=== PATIENT | male | born 1965 | race Caucasian/White ===

== ENCOUNTER 2018-02-09 21:25 | Emergency (ER) | payer OTHER ==
[2018-02-09 21:29] VITALS: BP 131/74
[2018-02-09] MEDS ORDERED: FLUORESCEIN SODIUM 1 MG STRIP OP ONE ×2 (21:39→21:45)
[2018-02-09] MEDS ORDERED: PROPARACAINE 0.5% 15 ML OPHT DROP ONE (21:39)
[2018-02-09] MEDS ORDERED: PROPARACAINE 0.5% 15 ML OPHT DROP OP ONE (21:45)
--- NOTE | 2018-02-09 21:58 | EDPHY ---
H & P Time Seen by Provider: 02/09/18 21:58 HPI/ROS: CHIEF COMPLAINT: Left eye pain HISTORY OF PRESENT ILLNESS: Patient is 53-year-old male here complaining of left eye pain since this afternoon. 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 The pain as mostly resolved but still has a sense that there is something in his eye. Denies any vision changes. Takes no prescribed medications. There is no drug or alcohol use involved. Denies other injuries. REVIEW OF SYSTEMS: Constitutional: No fever, no chills. Eyes: No discharge. ENT: No sore throat. Cardiovascular: No chest pain, no palpitations. Respiratory: No cough, no shortness of breath. Gastrointestinal: No abdominal pain, no vomiting. Genitourinary: No hematuria. Musculoskeletal: No back pain. Skin: No rashes. Neurological: No headache. Smoking Status: Never smoked Physical Exam: General Appearance: Alert and no distress. Eyes: Pupils equal and round no injection. No foreign body or hyphema seen on funduscopic exam. Pupils PERRLA. Slit-lamp exam reveals corneal abrasion at approximately 11 o'clock without hyphema or foreign body. Respiratory: Chest is nontender, lungs are clear to auscultation. Cardiac: regular rate and rhythm. Gastrointestinal: Abdomen is soft and nontender, no masses, bowel sounds normal. Musculoskeletal: Neck is supple and nontender. Extremities have full range of motion and are nontender. Skin: No rashes or lesions. Constitutional: Initial Vital Signs Temperature (C) 36.8 C 02/09/18 21:27 Heart Rate 52 L 02/09/18 21:27 Respiratory Rate 18 02/09/18 21:27 Blood Pressure 131/74 H 02/09/18 21:27 O2 Sat (%) 96 02/09/18 21:27 O2 Delivery Mode Room Air Allergies/Adverse Reactions: No Known Allergies Allergy (Unverified 02/09/18 21:27) Home Medications: Medication Instructions Recorded Polymyxin B Sulfate/Tmp [Polytrim 1 drops EACHEYE TID 7 Days #1 02/09/18 Opht Drops (*)] bottle Medical Decision Making ED Course/Re-evaluation: Patient here with left eye pain after he is something his left eye while at work underneath a car. Exam reveals no subconjunctival hemorrhage, hyphema or foreign body. His vision is intact. There is is small corneal abrasion is likely the source of his pain. Is started on topical antibiotics and will follow up with Ophthalmology if pain is not improving. - Data Points Medications Given: Discontinued Medications Fluorescein Sodium (Bioglo) 1 mg OP EDNOW ONE Stop: 02/09/18 21:46 Last Admin: 02/09/18 21:45 Dose: 1 mg Polymyxin/Trimethoprim Sulfate (Polytrim Opht Drops) 1 drops LEFTEYE Q6HRS RAYSHAWN Stop: 03/12/18 00:00 Last Admin: 02/09/18 22:48 Dose: 1 drop Proparacaine HCl (Alcaine 0.5%) 1 drops OP EDNOW ONE Stop: 02/09/18 21:46 Last Admin: 02/09/18 21:45 Dose: 1 drop Departure - Departure Disposition: Home, Routine, Self-Care Clinical Impression: Corneal abrasion Condition: Good Instructions: Polymyxin B/Trimethoprim (Into the eye), Corneal Abrasion (ED) Additional Instructions: take antibiotics as directed. Follow up with Ophthalmology if he developed worsening pain or other worrisome symptoms. Pain should be improving in the next 24 hr. Referrals: NONE *PRIMARY CARE P,. [Primary Care Provider] - As per Instructions Prescriptions: Polymyxin B Sulfate/Tmp [Polytrim Opht Drops (*)] 1 drops EACHEYE TID 7 Days #1 bottle
[2018-02-09] MEDS: POLYMYXIN B SULFATE/TMP 10 ML OPHT.BTL LEFTEYE SCH ×2 (22:45→22:48)
== END 2018-02-09 22:57 | disposition home or self-care (01) ==
DX: S05.02XA Injury of conjunctiva and corneal abrasion without foreign body, left eye, initial encounter (principal); W20.8XXA Other cause of strike by thrown, projected or falling object, initial encounter; Y99.0 Civilian activity done for income or pay; Y93.89 Activity, other specified